=== PATIENT | male | born 1955 ===

== ENCOUNTER 2019-05-24 21:10 | Observation (INO) | payer BC, MEDICARE ==
[2019-05-24 21:55] LABS: #Basophils 0.1 thou/uL (0.0-0.2); #Eosinphils 0.1 thou/uL (0.0-0.7); #Lymphocytes 1.6 thou/uL (1.20-3.40); #Monocytes 0.5 thou/uL (0.11-0.59); #Neutrophils 14.6 thou/uL (1.40-6.50); %Basophils 0.5 % (0.0-1.0); %Eosinophils 0.4 % (0.0-10.0); %Lymphocytes 9.5 % (21.0-51.0); %Monocytes 3.1 % (0.0-10.0); %Neutrophils 86.5 % (42.0-75.0); Hemoglobin 15.2 g/dL (14.0-18.0); Mean Corpuscular HGB CONC 33.6 g/dL (32.0-36.0); Mean Platelet Volume 9.2 fL (7.4-10.4); Platelet Count 251 thou/uL (130-400); RBC Distribution Width 12.7 % (11.5-14.5); Red Blood Cell (RBC) Count 4.74 mill/uL (4.70-6.10); White Blood Cell (WBC) Count 16.9 thou/uL (4.8-10.8)
[2019-05-24] MEDS ORDERED: Ketorolac Tromethamine 30 MG/ML VIAL ONE (21:59)
[2019-05-24] MEDS ORDERED: Morphine 4 MG/ML VIAL ONE (21:59)
[2019-05-24] MEDS ORDERED: Ondansetron PF 4 MG/2 ML Vial ONE (21:59)
[2019-05-24 22:17] LABS: ALT (SGPT) 16 U/L (8-55); AST (SGOT) 12 U/L (5-34); Albumin 4.2 g/dL (3.4-4.8); Alkaline Phosphatase 86 U/L (40-110); Anion Gap 11 mmol/L (10-20); BUN (Urea Nitrogen) 18 mg/dL (8.4-25.7); Bilirubin, Total 0.7 mg/dL (0.2-1.2); Calc. Creatinine Clearance 0 mL/min (70-130); Carbon Dioxide 25 mmol/L (23-31); Chloride 103 mmol/L (98-107); Estimated GFR-MDRD 84; Globulin 2.9 g/dL (2.4-3.5); Glucose 184 mg/dL (80-115); Lipase 17 U/L (8-78); Potassium 3.3 mmol/L (3.5-5.1); Protein, Total 7.1 g/dL (5.8-8.1); Sodium 136 mmol/L (136-145)
--- NOTE | 2019-05-24 22:37 | CT ---
EXAM: Abdomen and pelvic CT scan without contrast: HISTORY: Abdominal pain COMPARISON: None FINDINGS: The visualized lung bases are clear. Liver: Unremarkable. Gallbladder:Unremarkable. Pancreas:Unremarkable Spleen:Unremarkable. Adrenal glands:Unremarkable. Kidneys:No renal calculus or acute obstruction. No solid or cystic renal mass. No evidence for bowel obstruction. The appendix is minimally thickened and does not contain any air. It measures up to 0.8 cm in diamete r. There appears to be an appendicolith at the junction of the cecal tip and the appendix. No significant periappendiceal fat stranding or acute inflammatory changes. The urinary bladder is unremarkable. Reproductive system:Unremarkable No abscess, adenopathy, or abnormal fluid collection within the abdomen or pelvis. IMPRESSION: Abnormal thickened appendix with possible appendicolith at the origin of the cecum and appendix witho ut significant periappendiceal fat stranding or acute inflammation. This appearance is equivocal for acute appendicitis. Please correlate with clinical and laboratory findings and surgical consultat ion in this regard. Findings were discussed with the ordering nurse practitioner at 10:30 PM CODE CR
[2019-05-24] MEDS ORDERED: Sodium Chloride 0.9% 100 ML ONE (23:50)
[2019-05-24] MEDS ORDERED: Piperacillin/Tazobactam 3.375 GM VIAL ONE (23:50)
[2019-05-25 01:13] LABS: Bilirubin Negative (Negative); Blood, Urine Negative (Negative); Clarity Clear (Clear); Glucose, Urine (Dipstick) 30 mg/dL (Negative); Leukocyte Negative Leu/uL (Negative); Nitrite Negative (Negative); Protein, Urine (Dipstick) 20 mg/dL (Neg-Trace); Urobilinogen Normal mg/dL (Less than 2)
[2019-05-25] MEDS ORDERED: Ondansetron ODT 4 MG TAB SL PRN (02:14)
[2019-05-25] MEDS ORDERED: Ondansetron PF 4 MG/2 ML Vial IVP PRN ×2 (02:14→15:54)
[2019-05-25] MEDS ORDERED: Morphine 2 MG/ML SYRINGE SLOW IVP PRN ×2 (02:18→15:54)
[2019-05-25] MEDS ORDERED: Morphine 4 MG/ML VIAL SLOW IVP PRN ×2 (02:18→15:54)
[2019-05-25] MEDS ORDERED: Sodium Chloride 0.9% 1,000 ML IV SCH (02:30)
[2019-05-25] MEDS: Acetaminophen 1,000 MG in Premix Bag 1 BAG IVPB SCH ×2 (02:50→08:26)
[2019-05-25 04:38] VITALS: BMI 26.8
[2019-05-25] MEDS ORDERED: Piperacillin/Tazobactam 3.375 GM in Sodium Chloride 0.9% 100 ML IVPB SCH (06:00)
--- NOTE | 2019-05-25 09:03 | HP ---
CHIEF COMPLAINT: Right lower quadrant pain. HISTORY OF PRESENT ILLNESS: This is a 63-year-old male, who presents with a history of pain in the lower abdomen, it became more localized to the right lower quadrant. Pain described as sharp, 8/10, does not radiate. Not associated with change in stools, dysuria, hematuria. No fevers or chills. He has never had this pain before. Denies history of chronic abdominal pain. PAST MEDICAL HISTORY: Denies. PAST SURGICAL HISTORY: Denies. MEDICATIONS: Medicines taken daily, none. ALLERGIES: NO KNOWN DRUG ALLERGIES. SOCIAL HISTORY: He smokes. No alcohol or other drugs. REVIEW OF SYSTEMS: Ten-system review of systems is otherwise negative unless described above. PHYSICAL EXAMINATION: VITAL SIGNS: Blood pressure 159/73, pulse 60, respirations 16, and he is afebrile. HEENT: Sclerae are anicteric. Oropharynx clear. NECK: No lymphadenopathy. CHEST: Clear. HEART: Regular rate and rhythm. ABDOMEN: Soft, tender in right lower quadrant with localized guarding without rebound. EXTREMITIES: No ischemia or edema to extremities. LABORATORY DATA: White cell count is 16, hemoglobin 15. Creatinine is 0.91. 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 ASSESSMENT: Acute appendicitis. PLAN: Laparoscopic appendectomy. Risks, benefits, and alternatives discussed. He gives consent. We will do this today. Job ID: [id number]
[2019-05-25] MEDS ORDERED: cefOXitin 2 GM VIAL ONE (14:08)
[2019-05-25] MEDS ORDERED: Sodium Chloride 0.9% 100 ML ONE (14:09)
[2019-05-25] MEDS ORDERED: Bupivacaine/Epinephrine 0.25% 30 ML VIAL ONE (14:24)
[2019-05-25] MEDS ORDERED: Fentanyl 100 MCG/2 ML VIAL ONE (14:25)
[2019-05-25] MEDS ORDERED: Dexamethasone 20 MG/5 ML VIAL ONE (14:30)
[2019-05-25] MEDS ORDERED: Glycopyrrolate 0.2 MG/ML 5 ML SYRINGE ONE (14:30)
[2019-05-25] MEDS ORDERED: Lidocaine 1% PF 5 ML VIAL ONE (14:30)
[2019-05-25] MEDS ORDERED: Ketorolac Tromethamine 30 MG/ML VIAL ONE (14:30)
[2019-05-25] MEDS ORDERED: Rocuronium Bromide 10 MG/ML (10ML VIAL) ONE (14:30)
[2019-05-25] MEDS ORDERED: Ondansetron PF 4 MG/2 ML Vial ONE (14:30)
[2019-05-25] MEDS ORDERED: PROPOFOL 200 MG/20 ML VIAL ONE (14:30)
[2019-05-25] MEDS ORDERED: SUGAMMADEX SODIUM 200 MG/2 ML VIAL ONE (15:41)
[2019-05-25] MEDS ORDERED: Dextrose 50% Abboject 50 ML SYRINGE SLOW IVP PRN (15:54)
[2019-05-25] MEDS ORDERED: hydrALAZINE 20 MG/ML VIAL SLOW IVP PRN (15:54)
[2019-05-25] MEDS ORDERED: Dextrose 5% in Water 1,000 ML IV PRN (15:54)
[2019-05-25] MEDS ORDERED: Promethazine HCl 25 MG/ML VIAL IM PRN ×2 (15:54→15:55)
[2019-05-25] MEDS ORDERED: HYDROmorphone 2 MG/ML VIAL SLOW IVP PRN (15:55)
[2019-05-25] MEDS ORDERED: Ondansetron HCl/PF 4 MG/2 ML Vial IVP PRN (15:55)
[2019-05-25] MEDS ORDERED: PACU-Morphine 4MG/ML VIAL SLOW IVP PRN (15:55)
[2019-05-25] MEDS ORDERED: Promethazine HCl 25 MG/ML VIAL SLOW IVP PRN (15:55)
[2019-05-25] MEDS ORDERED: Morphine Sulfate 2 MG/ML SYRINGE SLOW IVP PRN (15:55)
--- NOTE | 2019-05-25 16:10 | OP ---
DATE OF PROCEDURE: 05/25/2019 PREOPERATIVE DIAGNOSIS: Acute appendicitis. POSTOPERATIVE DIAGNOSIS: Acute appendicitis. PROCEDURE PERFORMED: Laparoscopic appendectomy. ANESTHESIA: General. ESTIMATED BLOOD LOSS: Minimal. COMPLICATIONS: None. SPECIMEN: Appendix. FINDINGS: Appendicitis. DESCRIPTION OF PROCEDURE: The patient was taken to the operating room and laid supine on the operating room table. After general anesthetic was obtained, a Cm was placed. The abdomen was shaved, prepped, and draped in a sterile fashion. A curved incision was made below the umbilicus, cautery dissected down to the fascia, which has scored using cautery. Abdominal cavity was entered using a Autumn clamp. Holding stitch of PDS was placed on each side of the fascia. Janett trocar was placed. High-flow pneumoperitoneum was obtained. A lower abdominal 5 mm port and left lower quadrant 5 mm port were placed under direct visualization. Cecum was rolled over to reveal acute appendicitis. Window was made at the base of the appendix. The mesoappendix laparoscopic stapler was fired across the base of the appendix. A vascular reload was fired across the mesoappendix. The appendix was placed in an EndoCatch bag and brought out through the Rivers. The right lower quadrant and pelvis were irrigated using sterile solution. There was no bleeding. No evidence of injury to intraabdominal structures. All port sites were infiltrated using local anesthetic. All ports were removed under camera visualization. Pneumoperitoneum was let down. PDS used to close the fascial defect below the umbilicus. All incisions were irrigated and closed using 4-0 Monocryl and Dermabond. The patient was sent to Recovery in stable condition. All instrument counts, needle counts, and lap counts were correct. Job ID: [id number]
[2019-05-25] MEDS: Sodium Chloride 0.9% 1,000 ML IV SCH (17:44)
[2019-05-25] MEDS: Famotidine 20 MG TAB PO SCH (20:00)
[2019-05-25] MEDS: Famotidine/PF 20 mg/2ml Vial SLOW IVP SCH (20:07)
[2019-05-26] MEDS: HYDROcodone/Acetaminophen 10/325 mg Tablet PO PRN ×3 (01:27→09:52)
[2019-05-26] MEDS: Sodium Chloride 0.9% 1,000 ML IV SCH ×2 (03:44→09:54)
[2019-05-26 08:02] VITALS: BP 114/58; TEMP 98.5
[2019-05-26] MEDS: Famotidine 20 MG TAB PO SCH (09:52)
[2019-05-26] MEDS: Famotidine/PF 20 mg/2ml Vial SLOW IVP SCH (09:54)
--- NOTE | 2019-05-26 15:32 | DIS ---
DATE OF ADMISSION: 05/24/2019 DATE OF DISCHARGE: 05/26/2019 ADMITTING DIAGNOSIS: Acute appendicitis. DISCHARGE DIAGNOSIS: Acute appendicitis. PROCEDURE PERFORMED: Laparoscopic appendectomy by Dr. Lee without complication. CONDITION ON DISCHARGE: Improved. STAFF: Zeus Lee MD HOSPITAL COURSE: On postop day 1, the patient is doing well. He is tolerating diet. He is being discharged home. He will follow up with me in the office in 2 weeks. Job ID: [id number]
--- NOTE | 2019-05-31 15:45 | EKG ---
Test Reason : Blood Pressure : / mmHG Vent. Rate : 054 BPM Atrial Rate : 054 BPM P-R Int : 180 ms QRS Dur : 118 ms QT Int : 442 ms P-R-T Axes : -06 005 041 degrees QTc Int : 419 ms Sinus bradycardia Non-specific intra-ventricular conduction delay Borderline ECG Confirmed by PINEDA JOSUE ([id number]), medical editor CELESTE SIMEON ([id number]) on 05/31/2019 3:45:03 PM Referred By: Confirmed By:PINEDA JOSUE
--- NOTE | 2019-06-08 09:49 | EKG ---
Test Reason : Blood Pressure : / mmHG Vent. Rate : 052 BPM Atrial Rate : 052 BPM P-R Int : 162 ms QRS Dur : 108 ms QT Int : 446 ms P-R-T Axes : 044 037 045 degrees QTc Int : 414 ms Sinus bradycardia Nonspecific T wave abnormality Abnormal ECG Confirmed by Parveen MOJICA ([id number]) on 06/08/2019 9:49:22 AM Referred By: LM Confirmed By:Parveen MOJICA
== END 2019-05-26 13:09 | disposition home or self-care (01) ==
LOC: ERS 21:10 → SURG A 22:50
PROVIDERS: ADMIT Surgery; ATTEND Surgery
PROC: 0DTJ4ZZ Resection of Appendix, Percutaneous Endoscopic Approach (ICD-10-PCS; principal; 2019-05-26)
DX: K35.32 Acute appendicitis with perforation, localized peritonitis, and gangrene, without abscess (principal); F17.210 Nicotine dependence, cigarettes, uncomplicated
CPT/HCPCS: 36415; 74176; 80053; 81003; 83690; 85025; 88304; 93005; 93010; 96361; 96365; 96366; 96375; 96376; G0378; J0131; J0694; J1100; J1885; J2001; J2270; J2405; J2543; J2704; J3010; J3490